=== PATIENT | male | born 1985 | race American Indian/Alaskan Native ===

== ENCOUNTER 2023-08-18 11:44 | Emergency (ER) | payer OTHER ==
[2023-08-18 11:48] VITALS: BP 131/97; PULSE 96; RESP 18; TEMP 98.5; BMI 23.7
[2023-08-18] MEDS: NAPROXEN 500 MG TABLET PO ONE (12:22)
[2023-08-18] MEDS ORDERED: ACETAMINOPHEN 500 MG TABLET (FP) ONE ×2 (14:30→14:34)
[2023-08-18] MEDS: ACETAMINOPHEN 500 MG TABLET (FP) PO ONE (14:39)
== END 2023-08-18 14:21 | disposition home or self-care (01) ==
LOC: JERFT 11:44
PROC: 2W3FX1Z Immobilization of Left Hand using Splint (ICD-10-PCS; principal; 2023-08-18)
DX: M77.8 Other enthesopathies, not elsewhere classified (principal); W20.8XXA Other cause of strike by thrown, projected or falling object, initial encounter; Y99.0 Civilian activity done for income or pay
CPT/HCPCS: 73090-TC-LT-FY; 73110-TC-LT-FY; 73130-TC-LT-FY; 99284-25